=== PATIENT | female | born 1950 | race Caucasian/White ===

== ENCOUNTER → 2023-06-30 06:11 | Outpatient (CLI) | payer MEDICARE, OTHER, SELFPAY ==
--- NOTE | 2023-06-30 06:17 | NM_ITS ---
APPROVED REPORT Exam: Nuclear Stress Test Indication: soa..fatigue Patient Location: Outpatient Stress Tech: Jessica Dubon MD Tech:Gisela WeirFRANKI RT(R)(N) Ht: 5 ft 0 in Wt: 118 lbs Bra Size: 38c HR: 70 bpm BP: 127/51 mmHg BSA: 1.49 m2 Rhythm: NSR TID: 1.10 History: soa..fatigue Procedure: Patient received 0.4 mg of intravenous Lexiscan, resting heart rate 70 bpm, resting blood pressure 127/51 mmHg, with Lexiscan maximum heart rate achieved was 98 bpm which is 85 % of the maximum predicted heart rate and blood pressure was 135/50 mmHg. With Lexiscan, patient denied any complaint of chest pain. Cardiac Stress and Resting SPECT Images: Cardiac Stress and Resting SPECT images were obtained using technetium 99m Myoview 32.5 mCi stress and 10.33 mCi at rest. Resting and stress imaging in both supine and prone positions demonstrate no evidence of fixed or reversible perfusion defects. Gated imaging demonstrates normal global and regional LV systolic function. LVEF is calculated at 61%. Conclusion: No evidence of fixed or reversible perfusion defects. Gated imaging demonstrates normal global and regional LV systolic function. LVEF is calculated at 61%. Electronically signed by : Ashley Chavez, 07/02/2023 19:28:26
--- NOTE | 2023-06-30 08:08 | CA_ITS ---
APPROVED REPORT EXAM: Comprehensive 2D, Doppler, and color-flow Echocardiogram Passport Application Examiner: Jaelyn Greer, MIAN, RVS Ht: 4 ft 11 in Wt: 118lbs BSA: 1.47 BP: 142/64 mmHg Rhythm: NSR Indications: murmur, COPD, Smoker, SOB, HTN, HLD, Edema, DM 2D Dimensions Aortic Root 3.28 cm F: 2.7 - 3.3 LA Volume 34.10 mL Left Atrium 2.49 cm F: 2.7 - 3.8 LA Volume Index 23.20 mL/m2 (M/F) 16-34 LVOT 1.87 cm (M/F) 1.5-2.5 M-Mode Dimensions RVDd 2.47 cm (0.9-2.6) LA Diam 2.91 cm (1.9-4.0) LVDd 4.32 cm (3.5-5.7) Ao Diam 3.52 cm (2.0-3.7) LVDs 3.29 cm (3.5-5.7) IVSd 1.14 cm (0.6-1.1) PWd 0.86 cm (0.6-1.1) EF (Teich) 47.90% EPSs 0.83 cm FS 23.80% EDV (Teich) 84.00 mL TAPSE 1.94 (<1.7) ESV (Teich) 43.80 mL LV Diastology E Decel Time 210.00 (160-240 msec) E/A Ratio 0.59 MED E' 6.20 (< 7 cm/sec) MED A' 6.90 cm/s E'/MED E' Ratio 9.26 (>14) LAT E' 8.00 (<10 cm/sec) LAT A' 6.00 cm/s E/LAT E' Ratio 7.18 (>14) Aortic Valve LVOT Max 83.00 (70-110 cm/s) LVOT VTI 21.60 cm AoV Peak Michele. 96.00 (50-130 cm/s) AO Peak GR. 3.70 mmHg AO Mean GR. 1.80 (<5 mmHg) AO VTI 21.18 (18-25 cm) SUHAIL (VTI) 2.80 (2.5-4.5 cm2) Mitral Valve MV A Velocity 97.00 (40-130 cm/s) E/A Ratio 0.59 MV Decel. Time 210.00 (160-240 ms) Pulmonary Valve PV Peak Velocity 60.00 (50-150 cm/s) WV End VMAX 152.00 cm/s Tricuspid Valve TR P. Velocity 212.00 cm/s RAP Estimate 10.00 mmHg RVSP 28.00 mmHg Left Ventricle The left ventricle is normal size. The left ventricular systolic function is normal. The left ventricular ejection fraction is within the normal range. There is increased LV wall thickness. There is normal LV segmental wall motion. The left ventricular diastolic function is normal. LVEF is 60%. Right Ventricle The right ventricle is normal size. The right ventricular systolic function is normal. Atria The left atrium size is normal. The right atrium size is normal. There is no Doppler evidence of interatrial shunt. Aortic Valve The aortic valve is mildly thickened. There is no aortic valvular stenosis. No aortic regurgitation is present. Mitral Valve The mitral valve is mildly thickened. No evidence of mitral valve stenosis. There is trace mitral valve regurgitation noted. Tricuspid Valve The tricuspid valve leaflets are thin and pliable. Mild tricuspid regurgitation. RVSP is 20-25 mmHg. Pulmonic Valve The pulmonary valve is grossly normal in structure. Trace pulmonic regurgitation. Great Vessels The aortic root is normal in size. The ascending aorta is not well visualized. IVC is normal in size and collapses >50% with inspiration. Pericardium There is no pericardial effusion. Other Information Study Quality: Technically Difficult Conclusion Technically difficult study due to poor accoustic windows. Normal biventricular systolic function. No significant valvular stenosis or regurgitation. Electronically signed by : Ashley Chavez, 07/01/2023 16:46:33
--- NOTE | 2023-06-30 08:08 | CA_ITS ---
FINAL REPORT TECHNIQUE: Color Doppler, duplex Doppler and rose scale sonography of the bilateral neck vasculature was performed. Velocities were measured in the carotid arteries. Stenosis evaluation based on velocity criteria. CLINICAL HISTORY: BRUIT,HTN,SMOKER,HLD,DIZZINESS,CAD COMPARISON: None FINDINGS: The peak systolic velocity of the right common carotid artery is 102 cm/sec and internal carotid artery 110 cm/sec. The diastolic velocity in the internal carotid artery is 26 cm/sec. The ICA/CCA ratio is 1.08. Visually, a moderate amount of plaque is seen. These findings are consistent with less than 50% stenosis. The external carotid artery is patent. The right vertebral artery is patent with antegrade flow. The peak systolic velocity of the left common carotid artery is 93 cm/sec and internal carotid artery 148 cm/sec. The diastolic velocity in the internal carotid artery is 36 cm/sec. The ICA/CCA ratio is 1.6. Visually, a moderate amount of plaque is seen. These findings are consistent with less than 50% stenosis. The external carotid artery is patent. The left vertebral artery is patent with antegrade flow. IMPRESSION: No evidence of significant carotid stenosis. Bilateral patent vertebral arteries. If indicated, CTA or MRA could further evaluate. Reviewed, Interpreted and Dictated by Surinder Naranjo III, MD Transcribed by Shonna Carrasco Authenticated and [facility]
--- NOTE | 2023-06-30 10:04 | CA_ITS ---
APPROVED REPORT Exam: Pharmacologic Technologist: Jessica Rivera, Ht: 5 ft 0 in Wt: 118 lbs BSA: 1.49 m2 HR: 68 bpm BP: 127/51 mmHg Rhythm: NSR Medical History Medications: Lisinopril,,,,, Metformin,,,,, CloPIdogrel,,,,, RoSUVASTATIN,,,,, Metoprolol Succinate ER,,,,, Stress Test Details Test: LEXISCAN Reason for pharmacologic stress test: physical limitation. HR Resting HR: 70 bpm Max Heart Rate (APMHR): 148 bpm Max HR Achieved: 98 bpm Target HR (85% APMHR): 126 bpm % of APMHR: 66 Recovery HR: 84 bpm BP Resting BP: 127.0/51.0 mmHg Max BP: 135.0/50.0 mmHg Recovery BP: 130.0/54.0 mmHg ECG Resting ECG: NSR Stress ECG: No change Arrhythmia: None Clinical Exercise duration: 04:00 min Highest Stage Achieved: Exercise capacity: 1.0 METs Stress ECG Conclusion Symptoms: SOA, mild stomach & head discomfort. Arrhythmias/Ectopy: None. ST-T Changes: No significant ST changes. Conclusion: Unremarkable Lexiscan ECG stress test. Myoview images reported separately. Test Summary REST . . . . . . . Resting REST 15:33 . . 70 . 127/ 51 . . Stage 1 01:00 . . 80 . . . . Stage 2 01:00 . . 85 . 135/ 50 . . Stage 3 01:00 . . 84 . 119/ 50 . . Stage 4 01:00 . . 83 . 120/ 48 . Stop exercise at 04:00 RECOVERY 01:00 . . 84 . . . . RECOVERY 02:00 . . 86 . . . . RECOVERY 03:00 . . 84 . 134/ 50 . . RECOVERY 03:18 . . 79 . 130/ 54 . . Electronically signed by : Ashley Chavez, 07/02/2023 19:26:59
== END ==
PROVIDERS: PCP Internal Medicine; Visit Provider Nurse Practitioner Family
DX: E11.9 Type 2 diabetes mellitus without complications (principal); E78.5 Hyperlipidemia, unspecified; I10 Essential (primary) hypertension; I25.10 Atherosclerotic heart disease of native coronary artery without angina pectoris; I25.2 Old myocardial infarction; R01.1 Cardiac murmur, unspecified; R06.00 Dyspnea, unspecified; R09.89 Other specified symptoms and signs involving the circulatory and respiratory systems; R42 Dizziness and giddiness; R60.0 Localized edema; Z72.0 Tobacco use; Z95.5 Presence of coronary angioplasty implant and graft; Z79.84 Long term (current) use of oral hypoglycemic drugs
CPT/HCPCS: 78452; 93017; 93306; 93880; A9502; J2785

== ENCOUNTER 2024-07-10 10:33 | Outpatient (CLI) | payer MEDICARE, OTHER, SELFPAY ==
--- NOTE | 2024-07-10 10:42 | XR_ITS ---
FINAL REPORT CLINICAL HISTORY: Right sided pleurodynia FINDINGS: RIGHT RIBS WITH CHEST A single PA view of the chest and three views of the right ribs were obtained. The heart and mediastinum within normal limits. The lungs are clear. There is no pneumothorax. There is no acute displaced rib fracture. IMPRESSION: No acute cardiopulmonary process or displaced rib fracture. Reviewed, Interpreted and Dictated by Nitin Cosme MD Transcribed by Nery Toth Authenticated and . [facility]
== END 2024-07-10 23:59 | disposition home or self-care (01) ==
LOC: RAD 10:36
PROVIDERS: PCP Nurse Practitioner Family; Visit Provider Nurse Practitioner Family
DX: R07.81 Pleurodynia (principal)
CPT/HCPCS: 71101